=== PATIENT | male | born 1980 | race African-American/Black ===

== ENCOUNTER → 2016-07-10 | Outpatient (CLI) | payer OTHER ==
--- NOTE | 2016-07-11 09:25 | SLEEPCENT ---
DATE OF PROCEDURE: 07/10/2016 REQUESTING PROVIDER: Tiff Pierre NP INTERPRETATION: Nocturnal polysomnography was performed for the titration of pressure therapy in this patient diagnosed with obstructive sleep apnea syndrome, apnea-hypopnea index of 8.2. For testing, the patient was fit with a [employer] Quattro full face mask of small size, 4 cm of water pressure were applied to the circuit and the lights were extinguished. 4 hours and 37 minutes of data were reviewed. Of there, there were only 57 minutes of sleep identified. Sleep latency was prolonged at 59 minutes. The patient did not achieve rapid eye movement (REM) sleep. Sleep architecture showed initial progress, however, the patient awoke before midnight and was unable to return to sleep. Sleep architecture was not established sufficiently in this short time and sleep efficiency was low at only 21%. The patient's EKG showed a sinus rhythm at 55 beats per minute. EEG showed reasonably normal waveforms for awake and sleep. During the interval of recording, respiratory events were fully palliated with a CPAP at a pressure of +5. IMPRESSION: 1. Obstructive sleep apnea syndrome (G47.33). RECOMMENDATIONS: Nightly use of pressure therapy at 5 cm of water would seen reasonable based on these results. Given the limited sleep during testing, should the patient's clinical response be less than optimal, retesting for a full night titration may be helpful.
== END ==
LOC: M SLEEP 19:26
PROVIDERS: ATTEND Nurse Practitioner Adult Health
DX: G47.33 Obstructive sleep apnea (adult) (pediatric) (principal)